=== PATIENT | male | born 1990 | race African-American/Black ===

== ENCOUNTER 2020-10-31 07:01 | Emergency (ER) | payer BC, SELFPAY ==
--- NOTE | 2020-10-31 07:09 | ED.FEVER ---
HPI - Fever General Chief Complaint: Upper Respiratory Infection Stated Complaint: Fever Time Seen by Provider: 10/31/20 07:04 Source: patient Mode of arrival: ambulatory Limitations: no limitations History of Present Illness HPI Narrative: Patient is a 29-year-old male who presents to the emergency department for evaluation of subjective fever and malaise. Patient states his temperature has felt warm to him he has had slight chills, rhinorrhea and sore throat over the past 2 days. He was sent home from work yesterday and instructed to be tested for Covid. Patient denies any nausea or vomiting. He reports slight loss of sense of taste and smell. He denies flank pain, abdominal pain, dysuria or hematuria. No rashes. No recent sick contacts. Patient has not taken any Tylenol, ibuprofen or any other medications. Related Data Allergies Allergy/AdvReac Type Severity Reaction Status Date / Time No Known Allergies Allergy Verified 10/31/20 07:27 Review of Systems Review of Systems: Narrative: CONSTITUTIONAL: Reports subjective fever and chills EYES: Denies visual changes ENT: Reports mild rhinorrhea, mild congestion, sore throat CARDIOVASCULAR: Denies chest pain RESPIRATORY: Denies cough or dyspnea. GASTROINTESTINAL: Denies abdominal pain, nausea, vomiting GENITOURINARY: Denies dysuria or hematuria. SKIN: Denies rash or itching. MUSCULOSKELETAL: Denies back pain, joint pain, or myalgia. NEUROLOGIC: Denies headache [facility] Social History Social History (Updated 10/31/20 @ 07:35 by Camila Arevalo MD) Smoking status: Smoker, status unknown Alcohol intake: current Alcohol use details: rare Substance use: never Living arrangements: with family Gender identity (if verbalized by the patient): Male Exam Narrative: Exam Narrative: GENERAL: Awake, alert, conversant HEAD: Normocephalic, atraumatic. EYES: PERRLA and EOMI. ENT: Nares clear, no rhinorrhea or epistaxis. Mucous membranes moist. Mild erythema posterior oropharynx, no exudate NECK: Supple. CHEST: No respiratory distress, breathing even and non labored HEART: Regular rate, sinus rhythm ABDOMEN:Non distended, non tender EXTREMITIES: Normal range of motion. No edema. SKIN: Warm, dry, no rash. NEURO:No focal deficits. Alert and oriented x3 Course Vital Signs Vital signs: Vital Signs Temperature 37.2 C 10/31/20 07:13 Pulse Rate 94 10/31/20 07:13 Respiratory Rate 18 10/31/20 07:13 Blood Pressure 145/95 H 10/31/20 07:13 Pulse Oximetry 95 10/31/20 07:13 Temperature 37.2 C 10/31/20 07:13 Pulse Rate 94 10/31/20 07:13 Respiratory Rate 18 10/31/20 07:13 Blood Pressure 145/95 H 10/31/20 07:13 Pulse Oximetry 95 10/31/20 07:13 MDM - Fever MDM Narrative Medical decision making narrative: Patient strep swab positive for group A strep. Will treat with antibiotic. Patient given work note. Covid swab results will be communicated to patient. Patient then discharged home in stable condition. Differential Diagnosis Differential diagnosis: Likely fever of unknown origin, viral infection and influenza Lab Data Attestation: I reviewed the patient's lab results. Labs: Lab Results 10/31/20 Range/Units 07:36 SARS-CoV-2 RNA (RT-PCR) Pending Strep Screen Positive Group A Strep *(Reference Range: Negative)* Discharge Plan Discharge Clinical Impression: Strep pharyngitis Upper respiratory infection Qualifiers: URI type: unspecified viral URI Qualified Code(s): J06.9 - Acute upper respiratory infection, unspecified Patient Disposition: Home, Self-Care Condition: Stable Instructions: Antibiotic Form, Strep Throat (ED) Additional Instructions: Please contact your primary care physician for follow up from this visit. You have strep throat, please take your antibiotic in full and do not miss any doses. If you experience worsening pain, vomiting
[2020-10-31 07:13] VITALS: BP 145/95; PULSE 94; RESP 18; TEMP 37.2; O2SAT 95
[2020-10-31 08:25] VITALS: BP 143/94; PULSE 102; RESP 18; O2SAT 100
[2020-10-31 18:08] LABS: SARS-CoV-2 RNA PCR Negative
== END 2020-10-31 08:26 | disposition home or self-care (01) ==
PROVIDERS: Emergency Provider Emergency Medicine
DX: J02.0 Streptococcal pharyngitis (principal); Z20.822 Contact with and (suspected) exposure to COVID-19
CPT/HCPCS: 87880; 99283; C9803; U0003; U0005

== ENCOUNTER 2021-04-23 12:43 | Emergency (ER) | payer BC, SELFPAY ==
[2021-04-23 12:58] VITALS: BP 146/94; PULSE 98; RESP 18; TEMP 36.3; O2SAT 100
[2021-04-23 14:00] VITALS: BP 135/84; PULSE 97; RESP 17; O2SAT 99
[2021-04-23 14:54] LABS: EDCOVIDSCREEN Negative (Negative)
--- NOTE | 2021-04-23 16:05 | ED.URI ---
HPI - URI/Sore Throat General Chief Complaint: Upper Respiratory Infection Stated Complaint: chills, cough Time Seen by Provider: 04/23/21 13:18 Source: patient Limitations: no limitations History of Present Illness HPI Narrative: 30-year-old male with no major medical problems here with complaints of cold symptoms, cough and feeling feverish for past 1 day. He states that he has received 1 dose of Covid vaccine and is scheduled to get the 2nd 1 on May 07. He denies any nausea or vomiting. MD elicited complaint: cough, rhinorrhea and nasal congestion Onset (ago): day(s) (1) Severity: mild Exacerbating factors: nothing Relieving factors: nothing Associated symptoms: denies other symptoms Related Data Home Medications Medication Instructions Recorded Confirmed No Home Medications 04/23/21 04/23/21 Allergies Allergy/AdvReac Type Severity Reaction Status Date / Time No Known Allergies Allergy Verified 04/23/21 13:14 Review of Systems Review of Systems: All systems reviewed & are unremarkable except as noted in HPI and below Constitutional: Constitutional: Reports no additional constitutional complaints Eyes: Eyes: Reports no additional eye complaints ENT: Reports system reviewed and no additional complaints, except as documented Cardiovascular: Cardiovascular: Reports no additional cardiovascular complaints Respiratory: Respiratory: Reports cough Gastrointestinal: Gastrointestinal: Reports no additional gastrointestinal complaints Musculoskeletal: Musculoskeletal: Reports no additional musculoskeletal complaints PMFSH Social History Social History Smoking status: Smoker, status unknown Alcohol intake: current Alcohol use details: rare Substance use: never Gender identity (if verbalized by the patient): Male Exam Narrative: GENERAL: Well-appearing, well-nourished, and in no acute distress. HEAD: Normocephalic, atraumatic. EYES: PERRLA and EOMI. ENT: Nares clear, no rhinorrhea or epistaxis. Mucous membranes moist. NECK: Supple. CHEST: Clear to auscultation. No respiratory distress. HEART: Regular rate and rhythm. No murmur heard. Normal peripheral pulses. EXTREMITIES: Normal range of motion. No edema. SKIN: Warm, dry, no rash. NEURO: No focal deficits. Alert and oriented x3. Course Course Emergency Course: Out his Covid screen. At this time his symptoms appear to be viral. Advised him to take Tylenol ibuprofen for pain. Vital Signs Vital signs: Vital Signs Temperature 36.3 C L 04/23/21 12:58 Pulse Rate 98 04/23/21 12:58 Respiratory Rate 18 04/23/21 12:58 Blood Pressure 146/94 H 04/23/21 12:58 Pulse Oximetry 100 04/23/21 12:58 Temperature 36.3 C L 04/23/21 12:58 Pulse Rate 97 04/23/21 14:00 Respiratory Rate 17 04/23/21 14:00 Blood Pressure 135/84 04/23/21 14:00 Pulse Oximetry 99 04/23/21 14:00 MDM - URI/Sore Throat Lab Data Labs: Lab Results 04/23/21 Range/Units 13:50 SARS-CoV-2 IgG/IgM Ag?Rapid Negative (Negative) Discharge Plan Discharge Clinical Impression: Acute viral syndrome Patient Disposition: Home, Self-Care Condition: Stable Instructions: Antibiotic Form, Viral Syndrome (ED) Additional Instructions: Take Tylenol ibuprofen for pain. Drink plenty of fluids. Follow-up with your primary doctor Prescriptions: No Action No Home Medications RF: 0 Follow-up/Referrals: Keenan Samayoa MD [Physician] - PHYSICIAN,[employer]ICE DIRECTOR [Primary Care Provider] - Time of Disposition: 16:10
== END 2021-04-23 16:33 | disposition home or self-care (01) ==
PROVIDERS: Emergency Provider Family Medicine
DX: B34.9 Viral infection, unspecified (principal); Z20.822 Contact with and (suspected) exposure to COVID-19
CPT/HCPCS: 36415; 87426; 99283; C9803

== ENCOUNTER 2021-07-26 06:51 | Emergency (ER) | payer BC, SELFPAY ==
[2021-07-26 07:00] VITALS: BP 140/85; PULSE 108; RESP 20; TEMP 37.2; O2SAT 97
--- NOTE | 2021-07-26 07:58 | ED.GENADULT ---
HPI - General Adult General Chief complaint: Upper Respiratory Infection Stated complaint: sore throat, chills Time Seen by Provider: 07/26/21 07:00 History of Present Illness HPI narrative: Patient is a 30-year-old male who presents ER with cold symptoms. He reports he has been having subjective sweats and chills over the last 2 days along with sore throat. No sinus congestion. No productive cough or dyspnea. He is vaccinated against Covid. No loss of taste or smell. He does report fatigue and body aches. No known sick contacts. No alleviating factors. Related Data Home Medications Medication Instructions Recorded Confirmed No Home Medications 04/23/21 04/23/21 Allergies Allergy/AdvReac Type Severity Reaction Status Date / Time No Known Allergies Allergy Verified 07/26/21 07:02 Review of Systems Review of Systems: All systems reviewed & are unremarkable except as noted in HPI and below Constitutional: Constitutional: Reports chills, Reports fatigue and Reports fever(s) ENT: Denies nasal congestion and Reports sore throat Cardiovascular: Cardiovascular: Denies chest pain, Denies rapid heart rate and Denies radiating jaw, neck or arm pain Respiratory: Respiratory: Denies cough, Denies dyspnea and Denies wheezing Gastrointestinal: Gastrointestinal: Denies abdominal pain, Denies nausea and Denies vomiting Musculoskeletal: Musculoskeletal: Reports myalgias and Denies muscle cramps PMFSH Past Medical History Medical History (Updated 07/26/21 @ 08:37 by David Pacheco MD) Healthy adult male Surgical History Surgical History (Updated 07/26/21 @ 07:59 by David Pacheco MD) No history of previous surgery Social History Social History Smoking status: Smoker, status unknown Alcohol intake: current Alcohol use details: rare Substance use: never Gender identity (if verbalized by the patient): Male Exam Narrative: GENERAL: Well-appearing, well-nourished, and in no acute distress. HEAD: Normocephalic, atraumatic. ENT: Mucous membranes moist. Mild erythema to posterior oropharynx without uvular edema or tonsillar hypertrophy/exudate. TMs normal bilaterally. Neck: Supple the patient reports mild discomfort left anterior cervical chain just inferior to the angle of the mandible. CHEST: Clear to auscultation. No respiratory distress. HEART: Regular rate and rhythm. Normal peripheral pulses. NEURO: Alert and oriented x3. PSYCH: Normal mood and affect. Course Course Emergency Course: Patient informed results. Symptomatic care at home. Vital Signs Vital signs: Vital Signs Temperature 98.9 F 07/26/21 07:00 Pulse Rate 108 H 07/26/21 07:00 Respiratory Rate 20 07/26/21 07:00 Blood Pressure 140/85 07/26/21 07:00 Pulse Oximetry 97 07/26/21 07:00 Temperature 98.9 F 07/26/21 07:00 Pulse Rate 108 H 07/26/21 07:00 Respiratory Rate 20 07/26/21 07:00 Blood Pressure 140/85 07/26/21 07:00 Pulse Oximetry 97 07/26/21 07:00 Medical Decision Making Vital Signs Vital Signs: Vital Signs Temperature 98.9 F 07/26/21 07:00 Pulse Rate 108 H 07/26/21 07:00 Respiratory Rate 20 07/26/21 07:00 Blood Pressure 140/85 07/26/21 07:00 Pulse Oximetry 97 07/26/21 07:00 Temperature 98.9 F 07/26/21 07:00 Pulse Rate 108 H 07/26/21 07:00 Respiratory Rate 20 07/26/21 07:00 Blood Pressure 140/85 07/26/21 07:00 Pulse Oximetry 97 07/26/21 07:00 Lab Data Labs: Influenza A Screen Negative Reference Range: Negative Influenza B Screen Negative Reference Range: Negative Strep Screen Presumptive Negative *(Reference Range: Negative)* Discharge Plan Discharge Clinical Impression: Pharyngitis Patient Dis
--- NOTE | 2021-07-26 08:35 | PC.NURSE ---
Dr. Ni at bedside to discuss results and treatment plan with pt.
== END 2021-07-26 08:49 | disposition home or self-care (01) ==
PROVIDERS: Emergency Provider Emergency Medicine
DX: J02.9 Acute pharyngitis, unspecified (principal)
CPT/HCPCS: 87081; 87147; 87804; 87880; 99283

== ENCOUNTER 2021-12-23 23:39 | Emergency (ER) | payer OTHER, BC, SELFPAY ==
[2021-12-23 23:38] VITALS: BP 139/99; PULSE 84; RESP 14; TEMP 36.2; O2SAT 97
--- NOTE | 2021-12-23 23:47 | PC.NURSE ---
ERP removed c-collar.
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
[2021-12-24] MEDS: ACETAMINOPHEN 325 MG TABLET 650 MG PO (00:01)
== END 2021-12-24 00:33 | disposition home or self-care (01) ==
LOC: ANHED 23:54
PROVIDERS: Emergency Provider Emergency Medicine
DX: S13.4XXA Sprain of ligaments of cervical spine, initial encounter (principal); V43.62XA Car passenger injured in collision with other type car in traffic accident, initial encounter
CPT/HCPCS: 99282; A9270

== ENCOUNTER 2023-05-09 00:36 | Emergency (ER) | payer BC, SELFPAY ==
[2023-05-09] VITALS (7 sets, daily range): BP systolic 116–149; BP diastolic 70–91; PULSE 74–89; RESP 16–20; TEMP 36.7; O2SAT 95–100
--- NOTE | ~2023-05-09 | XR_ITS ---
EXAMINATION: XR chest 2V DATE: 05/09/2023 00:59 INDICATION: Chest pain. Shortness of breath. TECHNIQUE: Frontal and lateral views of the chest were obtained. COMPARISON: None. FINDINGS: There is no pneumonia, pleural effusion, or pneumothorax. The heart size is normal. IMPRESSION: 1. No acute cardiopulmonary disease. Reviewed, dictated and finalized at location E.
--- NOTE | 2023-05-09 00:37 | ECG_ITS ---
Measurements Intervals [place] Rate: 86 P: 34 NE: 185 QRS: 19 QRSD: 88 T: 1 QT: 342 QTc: 409 Interpretive Statements SINUS RHYTHM DELAYED PRECORDIAL R/S TRANSITION BORDERLINE T WAVE ABNORMALITY- INFERIOR LEADS BORDERLINE ECG NO PREVIOUS ECG AVAILABLE FOR COMPARISON Electronically Signed On 05-09-2023 6:34:32 CDT by Navid Barron D.O.
[2023-05-09] MEDS: KETOROLAC 30 MG/ML VIAL (*BKC) IV PUSH (02:25)
[2023-05-09] MEDS: IPRATROPIUM BR 0.02% INH SOLN 0.5 MG/2.5 ML VIAL INHALATION (02:32)
[2023-05-09] MEDS: ALBUTEROL SULFATE NEB 2.5 MG/3 ML INH INHALATION (02:33)
[2023-05-09 02:37] LABS: Basophils Percent Auto 0.3 % (0.2-1.2); Eosinophils Absolute Auto 0.3 K/mm3 (0-0.3); Hematocrit 40.9 % (42.0-52.0); Immature Granulocyte Absolute 0.01 K/mm3 (0.00-0.031); Immature Granulocyte Percent A 0.2 % (0-0.5); Lymphocytes Absolute Auto 2.17 K/mm3 (0.9-3.2); Lymphocytes Percent Auto 33.6 % (18.3-44.2); Mean Corpuscular HGB Conc 34.2 g/dl (32-36); Mean Corpuscular Hemoglobin 31.7 pg (26-34); Mean Corpuscular Volume 92.5 fl (80-100); Mean Platelet Volume 10.9 fl (7.4-10.4); Monocytes Absolute Auto 0.7 K/mm3 (0.1-0.6); Monocytes Percent Auto 10.5 % (2.6-8.5); Neutrophils Absolute Auto 3.3 K/mm3 (1.3-6.7); Neutrophils Percent Auto 50.4 % (45.5-73.1); Platelet Count Result 235 k/mm3 (150-375); Red Blood Count 4.42 M/mm3 (4.6-6.20); Red Cell Distribution Width 12.2 % (11.5-14.5); White Blood Count 6.5 K/mm3 (4.5-10.0)
--- NOTE | 2023-05-09 02:39 | ED.GENADULT ---
HPI - General Adult General Chief complaint: Shortness of Breath/Dyspnea Stated complaint: sob Time Seen by Provider: 05/09/23 01:50 History of Present Illness HPI narrative: Patient is a 32-year-old gentleman who presents the emergency department with chief complaint of left-sided chest pain the patient states that today he could not get a good deep breath because he was having a sharp type pain in the left side of his chest. Patient denies fever denies trauma does report that he lives fairly heavy boxes at work but reports no new or different playing than what he previously has been doing the patient states he had no trauma reports no coughing does report that he vapes the patient denies fever chills Related Data Allergies Allergy/AdvReac Type Severity Reaction Status Date / Time No Known Allergies Allergy Verified 05/09/23 01:37 Review of Systems Review of Systems: A 10 system review of systems was completed on the patient and is negative except for what is stated in the HPI. Nursing and ancillary documentation was reviewed. [facility] Past Medical History Medical History Healthy adult male Surgical History Surgical History No history of previous surgery Social History Social History Smoking status: Smoker, status unknown Alcohol intake: current Alcohol use details: rare Substance use: never Living arrangements: with family Gender identity (if verbalized by the patient): Male Exam Narrative: GENERAL: Well-appearing, well-nourished, and in no acute distress. HEAD: Normocephalic, atraumatic. EYES: PERRLA and EOMI. ENT: Nares clear, no rhinorrhea or epistaxis. Mucous membranes moist. NECK: Supple. CHEST: Clear to auscultation. No respiratory distress. HEART: Regular rate and rhythm. No murmur heard. Normal peripheral pulses. ABDOMEN: Soft, nontender, nondistended, normal active bowel sounds. EXTREMITIES: Normal range of motion. No edema. SKIN: Warm, dry, no rash. NEURO: No focal deficits. Alert and oriented x3. PSYCH: Normal mood and affect. Course Vital Signs Vital signs: Vital Signs Temperature 36.7 C 05/09/23 00:40 Pulse Rate 89 05/09/23 00:40 Respiratory Rate 20 05/09/23 00:40 Blood Pressure 149/82 H 05/09/23 00:40 Pulse Oximetry 100 05/09/23 00:40 Oxygen Delivery Room Air 05/09/23 00:40 Temperature 36.7 C 05/09/23 00:40 Pulse Rate 81 05/09/23 03:15 Respiratory Rate 18 05/09/23 03:15 Blood Pressure 116/76 05/09/23 03:15 Pulse Oximetry 99 05/09/23 03:15 Oxygen Delivery Room Air 05/09/23 01:40 Medical Decision Making MDM Narrative Medical decision making narrative: Differential diagnosis includes PE, ACS, pleurisy, pneumothorax, Chest x-ray showed no widened mediastinum showed no evidence of pneumothorax EKG showed no acute ischemic changes Laboratory studies showed a normal CBC normal CMP D-dimer was negative BNP was negative troponin was negative liver enzymes were normal Patient was feeling somewhat better after receiving Toradol in the emergency department the patient will be discharged home on anti-inflammatories and will be instructed to follow-up with his primary care provider Vital Signs Vital Signs: Vital Signs Temperature 36.7 C 05/09/23 00:40 Pulse Rate 89 05/09/23 00:40 Respiratory Rate 20 05/09/23 00:40 Blood Pressure 149/82 H 05/09/23 00:40 Pulse Oximetry 100 05/09/23 00:40 Oxygen Delivery Room Air 05/09/23 00:40 Temperature 36.7 C 05/09/23 00:40 Pulse Rate 81 05/09/23 03:15 Respiratory Rate 18 05/09/23 03:15 Blood Pressure 116/76 05/09/23 03:15 Pulse Oximetry 99 05/09/23 03:15 Oxygen Delivery Room Air 05/09/23 01:40 Lab Data 05/09/23 02:28 05/09/23 02:28
[2023-05-09 02:46] LABS: INR 0.9; Prothrombin Time 12.9 Seconds (11.1-14.7)
[2023-05-09 02:53] LABS: D Dimer < 0.27 ug/mL (<0.48)
[2023-05-09 02:54] LABS: Alanine Aminotransferase 33 U/L (6-50); Albumin Level 4.3 g/dL (3.5-5.1); Alkaline Phosphatase 54 U/L (38-126); Anion Gap 3 mmol/L (8-16); Aspartate Amino Transferase 36 U/L (17-59); Bilirubin,Total 0.5 mg/dL (0.2-1.3); Blood Urea Nitrogen 15 mg/dL (9-20); Carbon Dioxide 28 mmol/L (22-30); Chloride 106 mmol/L (98-107); Estimated CRCL calculation 123 ml/min; Estimated Glomerular Filt Rate > 60; Glucose 104 mg/dL (65-110); Magnesium 2.2 mg/dL (1.6-2.3); Potassium 3.7 mmol/L (3.4-5.0); Sodium 137 mmol/L (137-145)
[2023-05-09 03:11] LABS: NT Pro B Type Natriuretic Pept < 20 pg/mL (19.9-100); Troponin I < 0.012 ng/mL (0.000-0.034)
== END 2023-05-09 04:00 | disposition home or self-care (01) ==
PROVIDERS: Emergency Provider Emergency Medicine
DX: R09.1 Pleurisy (principal); R94.31 Abnormal electrocardiogram [ECG] [EKG]
CPT/HCPCS: 36415; 71046; 80053; 83735; 83880; 84484; 85025; 85380; 85610; 85730; 93005; 94640; 96374; 99284; J1885